=== PATIENT | female | born 1950 | race African-American/Black ===

== ENCOUNTER 2024-06-12 08:12 | Emergency (ER) | payer OTHER ==
[~2024-06-12] VITALS: Ht 167.6 cm; Wt 95.0 kg
[2024-06-12 08:13] VITALS: O2SAT 97
[2024-06-12] MEDS: ACETAMINOPHEN 325MG TABLET PO ONE (08:30)
[2024-06-12] MEDS ORDERED: TOPUD PO (10:05)
[2024-06-12 10:18] VITALS: BP 126/64; PULSE 65; RESP 14; TEMP 98.4
== END 2024-06-12 10:22 | disposition home or self-care (01) ==
LOC: ER 08:12
DX: M79.641 Pain in right hand (principal); M25.461 Effusion, right knee; E11.9 Type 2 diabetes mellitus without complications; I10 Essential (primary) hypertension; W01.0XXA Fall on same level from slipping, tripping and stumbling without subsequent striking against object, initial encounter; Y93.89 Activity, other specified; Y92.89 Other specified places as the place of occurrence of the external cause; Y99.8 Other external cause status
CPT/HCPCS: 73130; 73562; 99284